=== PATIENT | female | born 1930 | race Caucasian/White ===

== ENCOUNTER → 2016-08-16 | Outpatient (CLI) | payer OTHER ==
[~2016-08-16] MED LIST: AMLODIPINE-BEN1 EAC3 PO; CALTRATE 600 +1 EAC1 PO; CENTRUM SILVER1 EAC4 PO; EVISTA PO; ZOLOFT25 MG PO
== END ==
LOC: RAD 13:31
DX: Z12.31 Encounter for screening mammogram for malignant neoplasm of breast (principal)

== ENCOUNTER → 2017-12-05 | Outpatient (CLI) | payer OTHER | LOC: RAD 13:02 | DX: Z12.31 Encounter for screening mammogram for malignant neoplasm of breast (principal) ==